=== PATIENT | female | born 1930 | race African-American/Black ===

== ENCOUNTER 2017-08-23 15:03 | Inpatient (IN) | payer OTHER, MEDICAID ==
[2017-08-23 20:27] LABS: BASOPHILS # (AUTO) 0.1 X10^3/uL (0.0-0.1); BASOPHILS % (AUTO) 0.8 % (0.2-1.0); EOSINOPHILS % (AUTO) 0.2 % (0.9-2.9); HEMATOCRIT 39.3 % (36.0-47.0); HEMOGLOBIN 12.9 g/dL (12.0-16.0); LYMPHOCYTES # (AUTO) 1.6 X10^3/uL (1.3-2.9); LYMPHOCYTES % (AUTO) 12.4 % (21.0-51.0); MEAN PLATELET VOLUME 8.1 fL (7.4-11.0); MONOCYTES # (AUTO) 1.1 x10^3/uL (0.3-0.8); MONOCYTES % (AUTO) 8.6 % (0.0-13.0); NEUTROPHILS # (AUTO) 9.8 x10^3/uL (2.2-4.8); PLATELET COUNT 361 X10^3/uL (150.0-450.0); RED BLOOD COUNT 4.62 X10^6/uL (3.5-5.4); RED CELL DISTRIBUTION WIDTH 15.4 % (11.6-16.5); WHITE BLOOD COUNT 12.6 X10^3/uL (3.6-10.0)
[2017-08-23 20:40] LABS: ALANINE AMINOTRANSFERASE 58 Units/L (12-78); ALBUMIN 2.2 g/dL (3.4-5.0); ALKALINE PHOSPHATASE 118 Units/L (46-116); ASPARTATE AMINO TRANSFERASE 49 Units/L (15-37); BLOOD UREA NITROGEN 27 mg/dL (7-18); CALCIUM 9.3 mg/dL (8.5-10.1); CARBON DIOXIDE 23.8 mmol/L (21-32); CHLORIDE 110 mmol/L (98-107); COR CA(FOR HYPOALB) 10.7 mg/dL (8.5-10.1); CREATININE 1.12 mg/dL (0.55-1.02); SODIUM 145 mmol/L (136-145); eGFR BLACK RACES 59 (>60); eGFR NON BLACK RACES 49 (>60)
[2017-08-23] MEDS ORDERED: MAXIPIME IV SCH (21:00)
[2017-08-23] MEDS: ZITHROMAX INJ 500 MG VIAL 500 MG in NS 250 ML IV 250 ML IV SCH (22:08)
[2017-08-23] MEDS: NS 1000 ML 1,000 ML IV SCH (22:08)
[2017-08-23] MEDS: MAXIPIME 1 GM IV PREMIX 1 GM/50 ML BAG IV SCH (22:09)
--- NOTE | 2017-08-23 22:32 | RAD ---
Chest, AP Indication: Bronchitis, cough, congestion Comparison: None Findings: There are mildly low lung volumes with minimal bibasilar airspace disease. The upper lungs are essentially clear. The cardiac silhouette is unremarkable. No evidence for large effusion. Impression: Low lung volumes with minimal bibasilar airspace disease, suggesting atelectasis. No conv incing bronchopneumonia. Reported By:
[2017-08-24 04:12] LABS: ABG BASE EXCESS 6.6 mmol/L (-2.0-2.0)
[2017-08-24 04:13] LABS: ABG HCO3 30.5 mmol/L (22-26)
[2017-08-24 04:16] LABS: FRACTIONATED INSPIRED OXYGEN 21
[2017-08-24 04:54] LABS: BASOPHILS # (AUTO) 0.1 X10^3/uL (0.0-0.1); BASOPHILS % (AUTO) 0.6 % (0.2-1.0); EOSINOPHILS % (AUTO) 0.4 % (0.9-2.9); HEMATOCRIT 35.7 % (36.0-47.0); HEMOGLOBIN 11.9 g/dL (12.0-16.0); LYMPHOCYTES # (AUTO) 2.3 X10^3/uL (1.3-2.9); LYMPHOCYTES % (AUTO) 21.4 % (21.0-51.0); MEAN CORPUSCULAR HEMOGLOBIN 28.3 pg (27.0-34.0); MEAN CORPUSCULAR HGB CONC 33.3 g/dL (33.0-35.0); MEAN CORPUSCULAR VOLUME 84.8 fL (80.0-100.0); MEAN PLATELET VOLUME 7.9 fL (7.4-11.0); MONOCYTES # (AUTO) 1.2 x10^3/uL (0.3-0.8); MONOCYTES % (AUTO) 11.5 % (0.0-13.0); NEUTROPHILS # (AUTO) 7.1 x10^3/uL (2.2-4.8); NEUTROPHILS % (AUTO) 66.1 % (42.0-75.0); PLATELET COUNT 374 X10^3/uL (150.0-450.0); RED CELL DISTRIBUTION WIDTH 15.1 % (11.6-16.5); WHITE BLOOD COUNT 10.8 X10^3/uL (3.6-10.0)
[2017-08-24 04:59] LABS: ALANINE AMINOTRANSFERASE 61 Units/L (12-78); ALBUMIN 2.1 g/dL (3.4-5.0); ALKALINE PHOSPHATASE 106 Units/L (46-116); ASPARTATE AMINO TRANSFERASE 66 Units/L (15-37); BLOOD UREA NITROGEN 26 mg/dL (7-18); CALCIUM 8.9 mg/dL (8.5-10.1); CARBON DIOXIDE 27.3 mmol/L (21-32); CHLORIDE 110 mmol/L (98-107); COR CA(FOR HYPOALB) 10.4 mg/dL (8.5-10.1); CREATININE 1.08 mg/dL (0.55-1.02); SODIUM 145 mmol/L (136-145); TOTAL PROTEIN 7.3 g/dL (6.4-8.2); eGFR BLACK RACES > 60 (>60); eGFR NON BLACK RACES 51 (>60)
--- NOTE | 2017-08-24 08:05 | DR.H&P ---
H&P - History & Physical for Day of: H&P Date: 08/23/17 - Chief Complaint Chief Complaint: CHEST CONGESTION, COLD - Allergies Allergies/Adverse Reactions: Allergies Allergy/AdvReac Type Severity Reaction Status Date / Time No Known Drug Allergies Allergy Verified 08/23/17 17:29 - History of Present Illness History of Present Illness: 86 BF ADMIT FROM [facility] WITH UPPER RESP ILLNESS. PT HAD DEMENTIA, HTN. PLAN TO OBTAIN ADMISSION, LABS, IV ATBX, RESP THERAPY - Past Medical History Past Medical History: Dementia, GERD - Past Surgical History Surgical History: Unknown - Social History Does patient currently use any type of tobacco product: No Have you used tobacco products in the last 12 months: No Type of Tobacco Use: None Does any household member use tobacco: No Alcohol Use: None Drug Use: None - Medications Home Medications: Acetaminophen [Tylenol 325 mg Tab] 650 mg PO Q6H PRN 08/23/17 [History Confirmed 08/23/17] Acetaminophen/Codeine Tab [TYLENOL w/CODEINE #3 (300 MG/30 MG) *] 1 tab PO Q8H PRN 08/23/17 [History Confirmed 08/23/17] Aluminum & Magnesium Hydroxide [MAALOX or MYLANTA SUSP *] 20 mg PO Q6H PRN 08/23 [History Confirmed 08/23/17] Calcium Polycarbophil [Fiber Laxative] 1 tab PO HS 08/23/17 [History Confirmed 08/23/17] Cranberry Fruit Extract [Cranberry] 1 cap PO AC 08/23/17 [History Confirmed 12/05] Divalproex Sodium [DEPAKOTE DR TAB 250 MG Generic *] 1 tab PO DAILY 08/23/17 [ History Confirmed 08/23/17] Docusate Sodium [COLACE CAP 100 MG *] 1 cap PO BID 08/23/17 [History Confirmed 08/23/17] Donepezil Hydrochloride [ARICEPT TAB 10 MG *] 1 tab PO HS 08/23/17 [History Confirmed 08/23/17] Donepezil Hydrochloride [ARICEPT TAB 5 MG *] 1 tab PO HS 08/23/17 [History Confirmed 08/23/17] Folic Acid 1 tab PO AC 08/23/17 [History Confirmed 08/23/17] Levofloxacin [LEVAQUIN TAB 500 MG *] 1 tab PO AC 08/23/17 [History Confirmed 12/05] Magnesium Hydroxide Susp [MILK of MAGNESIA SUSP *] 3 dose PO Q8H PRN 08/23/17 [ History Confirmed 08/23/17] Meloxicam [MOBIC 15 MG *] 1 tab PO AC 08/23/17 [History Confirmed 08/23/17] Memantine HCl [NAMENDA 10 MG *] 1 tab PO BID 08/23/17 [History Confirmed ] Omeprazole 1 tab PO AC 08/23/17 [History Confirmed 08/23/17] Thiamine HCl [B-1] 1 tab PO AC 08/23/17 [History Confirmed 08/23/17] - Review of Systems Constitutional: Fever, Chills Eyes: No Symptoms Reported ENT: No Symptoms Reported Respiratory: Cough, Sputum, Wheezing Gastrointestinal: No Symptoms Reported Genitourinary: No Symptoms Reported Musculoskeletal: No Symptoms Reported Skin: No Symptoms Reported Neurological: Confusion - Physical Exam Vital Signs: Temperature 98.7 F Pulse Rate [Left Brachial] 62 Respiratory Rate 20 Blood Pressure [Left Arm] 136/63 O2 Sat by Pulse Oximetry 98 Oriented: Normal Eyes: Normal Ear: Normal Nose: Normal Throat: Normal Respiratory: RLL Diminished, LLL Diminished Cardiovascular: Normal : Normal Auscultation: Bowel Sounds: Normal Palpation: Normal Tenderness: Normal Skin: Normal Musculoskeletal: Motor Deficit Psychiatric: Depression Mood Description: Calm Speech Pattern: Inappropriate - Assessment/Plan (1) Acute bronchitis Status: Acute Plan: RESUME HOME MEDS, BLOOD AND SPUTUM CULTURE. IV ATBX, SUPPLEMENTAL O2, JET NEBS (2) Dementia Status: Acute
[2017-08-24] MEDS: ZITHROMAX INJ 500 MG VIAL 500 MG in NS 250 ML IV 250 ML IV SCH (08:24)
[2017-08-24] MEDS: NS 1000 ML 1,000 ML IV SCH ×2 (08:25→22:03)
[2017-08-24] MEDS ORDERED: TYLENOL #3 TAB (W/CODEINE) PO PRN (13:00)
[2017-08-24 15:25] VITALS: BMI 27.3
[2017-08-24 15:26] LABS: BILIRUBIN,URINE NEGATIVE (NEGATIVE); BLOOD/HEMOGLOBIN,URINE 2+ (NEGATIVE); GLUCOSE, URINE NEGATIVE (NEGATIVE); KETONES,URINE 3+ (NEGATIVE); LEUKOCYTE ESTERASE ,URINE 1+ (NEGATIVE); NITRITES,URINE NEGATIVE (NEGATIVE); PROTEIN,URINE 2+ (NEGATIVE); UROBILINOGEN,URINE NORMAL (NORMAL)
[2017-08-24 15:33] LABS: APPEARANCE,URINE HAZY (CLEAR); BACTERIA,URINE TRACE /HPF (NEGATIVE); COLOR,URINE YELLOW (YELLOW); SQUAMOUS EPITHELIAL CELL,UR FEW /HPF (NEGATIVE)
[2017-08-24] MEDS: PriLOSEC PO SCH (17:44)
[2017-08-24] MEDS ORDERED: K-LYTE EFFERVESCENT PO PRN (18:40)
[2017-08-24] MEDS: FIBERCON PO SCH (21:37)
[2017-08-24] MEDS: COLACE CAP 100 MG PO SCH (21:37)
[2017-08-24] MEDS: NAMENDA TAB 10 MG PO SCH (21:37)
[2017-08-24] MEDS: MAXIPIME 1 GM IV PREMIX 1 GM/50 ML BAG IV SCH (21:37)
[2017-08-24] MEDS: ARICEPT TAB 5 MG PO SCH (21:37)
[2017-08-25 05:20] LABS: BASOPHILS # (AUTO) 0.1 X10^3/uL (0.0-0.1); BASOPHILS % (AUTO) 0.9 % (0.2-1.0); EOSINOPHILS # (AUTO) 0.1 x10^3/uL (0.0-0.2); EOSINOPHILS % (AUTO) 0.6 % (0.9-2.9); HEMATOCRIT 34.1 % (36.0-47.0); HEMOGLOBIN 11.4 g/dL (12.0-16.0); LYMPHOCYTES # (AUTO) 2.8 X10^3/uL (1.3-2.9); LYMPHOCYTES % (AUTO) 22.6 % (21.0-51.0); MEAN CORPUSCULAR HEMOGLOBIN 28.5 pg (27.0-34.0); MEAN CORPUSCULAR HGB CONC 33.5 g/dL (33.0-35.0); MEAN CORPUSCULAR VOLUME 85.2 fL (80.0-100.0); MEAN PLATELET VOLUME 8.3 fL (7.4-11.0); MONOCYTES # (AUTO) 1.6 x10^3/uL (0.3-0.8); MONOCYTES % (AUTO) 12.7 % (0.0-13.0); NEUTROPHILS # (AUTO) 7.9 x10^3/uL (2.2-4.8); NEUTROPHILS % (AUTO) 63.2 % (42.0-75.0); PLATELET COUNT 335 X10^3/uL (150.0-450.0); RED BLOOD COUNT 4.01 X10^6/uL (3.5-5.4); RED CELL DISTRIBUTION WIDTH 15.4 % (11.6-16.5); WHITE BLOOD COUNT 12.5 X10^3/uL (3.6-10.0)
[2017-08-25] MEDS: PriLOSEC PO SCH ×3 (05:34→17:30)
[2017-08-25 05:38] LABS: ALANINE AMINOTRANSFERASE 113 Units/L (12-78); ALBUMIN 2.1 g/dL (3.4-5.0); ALKALINE PHOSPHATASE 101 Units/L (46-116); ASPARTATE AMINO TRANSFERASE 130 Units/L (15-37); BLOOD UREA NITROGEN 22 mg/dL (7-18); CALCIUM 8.8 mg/dL (8.5-10.1); CARBON DIOXIDE 24.9 mmol/L (21-32); CHLORIDE 114 mmol/L (98-107); COR CA(FOR HYPOALB) 10.3 mg/dL (8.5-10.1); CREATININE 1.07 mg/dL (0.55-1.02); TOTAL PROTEIN 6.9 g/dL (6.4-8.2); eGFR BLACK RACES > 60 (>60); eGFR NON BLACK RACES 52 (>60)
[2017-08-25 05:45] LABS: SODIUM 150 mmol/L (136-145)
--- NOTE | 2017-08-25 07:15 | RAD ---
Examination: Portable AP chest History: SOB Comparison 08/23/2017 Findings: Continued normal heart size. Suspect mild bibasal atelectasis, accentuated by low lung volu mes. No consolidation, pulmonary edema or large pleural effusion. Impression: No definite change since 08/23/2017. Reported By:
[2017-08-25] MEDS: NAMENDA TAB 10 MG PO SCH ×2 (10:18→21:10)
[2017-08-25] MEDS: NS 1000 ML 1,000 ML IV SCH (10:18)
[2017-08-25] MEDS: COLACE CAP 100 MG PO SCH ×2 (10:18→21:10)
[2017-08-25] MEDS: ZITHROMAX INJ 500 MG VIAL 500 MG in NS 250 ML IV 250 ML IV SCH (10:18)
[2017-08-25] MEDS: DEPAKOTE D.R. TAB PO SCH (10:18)
--- NOTE | 2017-08-25 17:00 | PCM.PROG ---
Progress Note - Progress Note for Day of Date: 08/25/17 - Subjective Subjective: WAS ADMITTED FOR ALTERED MENTAL STATUS AND AN UPPER RESPIRATORY INFECTION. TODAY, SHE IS LYING IN BED ON MORNING ROUNDS. SHE CONTINUES WITH COMPLAINTS OF SHORTNESS OF BREATH AND A PERSISTENT COUGH. ON EXAMINATION, HEART IS REGULAR IN RATE AND RHYTHM. BILATERAL LUNGS ARE NOTED WITH SCATTERED WHEEZING. ABODOMEN IS ROUND, SOFT, AND NON-TENDER WITH NORMAL BOWEL SOUNDS NOTED TO ALL QUADRANTS. THERE IS NORMAL RANGE OF MOTION NOTED TO ALL EXTREMITIES. HER VITAL SIGNS THIS MORNING ARE 99.4-58-18-97%-167/73. HER WHITE BLOOD CELL COUNT THIS MORNING IS 12.5 AND HER SODIUM IS 150. OTHERWISE, SHE IS HEMODYNAMICALLY STABLE. STAFF REPORTS THAT PATIENT CONTINUES WITH CONFUSTION AT TIMES. A CHEST XRAY WAS OBTAINED THIS MORNING AND REPORTS SUSPECT MILD BIBASAL ATELECTASIS. TODAY, WE WILL CHANGE IV FLUIDS TO NORMAL SALINE AT 50ML/HR. OTHERWISE, WE WILL CONTINUE WITH IV ANTIBIOTICS. WE PLAN TO FOLLOW UP WITH AM LABS AND CONTINUE TO MONITOR PATIENT. - Past Medical Family Social History Past Med/Fam/Surg Hx: No changes since H&P Allergies: Allergies No Known Drug Allergies Allergy (Verified 08/23/17 17:29) - Review of Systems ROS: No change since H&P - Vital Signs and I&O's Vital Signs: Temperature 99.0 F Pulse Rate [Left Brachial] 60 Respiratory Rate 18 Blood Pressure [Right Arm] 133/61 Blood Pressure [Left Arm] 170/75 O2 Sat by Pulse Oximetry 98 Intake and Output: Intake & Output 08/23/17 08/24/17 08/25/17 08/26/17 11:59 11:59 11:59 11:59 Intake Total 790 1590 640 Balance 790 1590 640 - Physical Exam Oriented: Normal Eyes: Normal Ear: Normal Nose: Normal Throat: Normal Respiratory: Right, Left, Generalized, Wheezes Cardiovascular: Normal : Normal Auscultation: Bowel Sounds: Normal Palpation: Normal Tenderness: Normal Skin: Normal Musculoskeletal: Motor Deficit Psychiatric: Depression Mood Description: Calm Speech Pattern: Clear, Appropriate - Laboratory and Diagnostics Result Diagrams: 08/25/17 04:10 08/25/17 04:10 Labs: 08/23/17 19:52 Blood Blood Culture - Preliminary 08/23/17 19:47 Blood Blood Culture - Preliminary 08/24/17 15:09 Urine,Clean Catch Urine Culture - Preliminary Laboratory WBC 12.5 X10^3/uL (3.6-10.0) H 08/25/17 04:10 RBC 4.01 X10^6/uL (3.5-5.4) 08/25/17 04:10 Hgb 11.4 g/dL (12.0-16.0) L 08/25/17 04:10 Hct 34.1 % (36.0-47.0) L 08/25/17 04:10 MCV 85.2 fL (80.0-100.0) 08/25/17 04:10 MCH 28.5 pg (27.0-34.0) 08/25/17 04:10 MCHC 33.5 g/dL (33.0-35.0) 08/25/17 04:10 RDW 15.4 % (11.6-16.5) 08/25/17 04:10 Plt Count 335 X10^3/uL (150.0-450.0) 08/25/17 04:10 MPV 8.3 fL (7.4-11.0) 08/25/17 04:10 Neut % 63.2 % (42.0-75.0) 08/25/17 04:10 Lymph % 22.6 % (21.0-51.0) 08/25/17 04:10 [place] % 12.7 % (0.0-13.0) 08/25/17 04:10 Eos % 0.6 % (0.9-2.9) L 08/25/17 04:10 Baso % 0.9 % (0.2-1.0) 08/25/17 04:10 Neut # 7.9 x10^3/uL (2.2-4.8) H 08/25/17 04:10 Lymph # 2.8 X10^3/uL (1.3-2.9) 08/25/17 04:10 [place] # 1.6 x10^3/uL (0.3-0.8) H 08/25/17 04:10 Eos # 0.1 x10^3/uL (0.0-0.2) 08/25/17 04:10 Baso # 0.1 X10^3/uL (0.0-0.1) 08/25/17 04:10 Absolute Nucleated RBC 0.0 /100WBC 08/25/17 04:10 Sample Site Lbra 08/23/17 21:52 ABG pH 7.490 (7.35-7.45) H 08/23/17 21:52 ABG pCO2 40.0 mmHg (35.0-45.0) 08/23/17 21:52 ABG pO2 74.0 mmHg (80.0-100.0) L 08/23/17 21:52 ABG HCO3 30.5 mmol/L (22-26) H* 08/23/17 21:52 ABG O2 Saturation 96.0 % (90-100) 08/23/17 21:52 ABG Base Excess 6.6 mmol/L (-2.0-2.0) H 08/23/17 21:52 Danny Test Na 08/23/17 21:52 A-a Gradient Not Reportable 08/23/17 21:52 FiO2 21 08/23/17 21:52 Blood Gas Comments Denis abg well-mtf 08/23/17 21:52 Sodium 150 mmol/L (136-145) H* 08/25/17 04:10 Corrected Sodium TNP 08/25/17 04:10 Potassium 3.5 mmol/L (3.5-5.1) 08/25/17 04:10 Chloride 114 mmol/L (98-107) H 08/25/17 04:10 Carbon Dioxide 24.9 mmol/L (21-32) 08/25/17 04:10 BUN 22 mg/dL (7-18) H 08/25/17 04:10 Creatinine 1.07 mg/dL (0.55-1.02) H 08/25/17 04:10 Est GFR (MDRD) Af Amer > 60 (>60) 08/25/17 04:10 Est GFR (MDRD) Non-Af 52 (>60) L 08/25/17 04:10 Glucose 91 mg/dL (65-99) 08/25/17 04:10 Calcium 8.8 mg/dL (8.5-10.1) 08/25/17 04:10 Corrected Calcium 10.3 mg/dL (8.5-10.1) H 08/25/17 04:10 Total Bilirubin 0.40 mg/dL (0.2-1.0) 08/25/17 04:10 AST 130 Units/L (15-37) H 08/25/17 04:10 ALT 113 Units/L (12-78) H 08/25/17 04:10 Alkaline Phosphatase 101 Units/L (46-116) 08/25/17 04:10 Total Protein 6.9 g/dL (6.4-8.2) 08/25/17 04:10 Albumin 2.1 g/dL (3.4-5.0) L 08/25/17 04:10 Globulin 4.8 g/dL (2.5-4.5) H 08/25/17 04:10 Albumin/Globulin Ratio 0.4 Ratio (1.1-2.1) L 08/25/17 04:10 Specimen Type Clean catch urine 08/24/17 15:09 Urine Color Yellow (YELLOW) 08/24/17 15:09 Urine Appearance Hazy (CLEAR) 08/24/17 15:09 Urine pH 6.0 (5.0 - 8.0) 08/24/17 15:09 Ur Specific [place] 1.025 (1.000-1.030) 08/24/17 15:09 Urine Protein 2+ (NEGATIVE) 08/24/17 15:09 Urine Glucose (UA) Negative (NEGATIVE) 08/24/17 15:09 Urine Ketones 3+ (NEGATIVE) 08/24/17 15:09 Urine Occult Blood 2+ (NEGATIVE) 08/24/17 15:09 Urine Nitrite Negative (NEGATIVE) 08/24/17 15:09 Urine Bilirubin Negative (NEGATIVE) 08/24/17 15:09 Urine Urobilinogen Normal (NORMAL) 08/24/17 15:09 Ur Leukocyte Esterase 1+ (NEGATIVE) 08/24/17 15:09 Urine RBC 3-5 /HPF (NEGATIVE) 08/24/17 15:09 Urine WBC 3-5 /HPF (NEGATIVE) 08/24/17 15:09 Ur Squamous Epith Cells Few /HPF (NEGATIVE) 08/24/17 15:09 Urine Bacteria Trace /HPF (NEGATIVE) 08/24/17 15:09 Ur Culture Indicated? Yes/culture set up 08/24/17 15:09 Stl C. diff Tox B Gene Negative (NEGATIVE) 08/23/17 19:07 Stl C. diff 027-NAP1-BI Negative (NEGATIVE) 08/23/17 19:07 Influenza Type A (PCR) Negative (NEGATIVE) 08/23/17 20:39 Influenza Type B (PCR) Negative (NEGATIVE) 08/23/17 20:39 - Plan (1) Acute bronchitis Status: Acute Plan: CONTINUE IV ANTIBIOTICS, START NEB TX, CONTINUE TO MONITOR LABS AND CHEST XRAY (2) Dementia Status: Acute Qualifiers: Dementia type: vascular dementia Dementia behavioral disturbance: without behavioral disturbance Qualified Code(s): F01.50 - Vascular dementia without behavioral disturbance Plan: CONTINUE NAMENDA, CONTINUE ARICEPT, CONTINUE TO MONITOR
[2017-08-25] MEDS ORDERED: NS 1/2 1000 ML IV 1,000 ML IV ONE (17:19)
[2017-08-25] MEDS: NS 1/2 1000 ML IV 1,000 ML IV SCH (17:30)
[2017-08-25] MEDS: MAXIPIME 1 GM IV PREMIX 1 GM/50 ML BAG IV SCH (21:03)
[2017-08-25] MEDS: ARICEPT TAB 5 MG PO SCH (21:10)
[2017-08-25] MEDS: FIBERCON PO SCH (21:10)
[2017-08-26] MEDS: NS 1/2 1000 ML IV 1,000 ML IV SCH ×2 (05:46→21:24)
[2017-08-26] MEDS: PriLOSEC PO SCH ×3 (05:46→16:20)
[2017-08-26 06:43] LABS: BASOPHILS # (AUTO) 0.1 X10^3/uL (0.0-0.1); EOSINOPHILS # (AUTO) 0.1 x10^3/uL (0.0-0.2); EOSINOPHILS % (AUTO) 0.9 % (0.9-2.9); HEMATOCRIT 34.6 % (36.0-47.0); HEMOGLOBIN 11.5 g/dL (12.0-16.0); LYMPHOCYTES # (AUTO) 2.9 X10^3/uL (1.3-2.9); LYMPHOCYTES % (AUTO) 25.5 % (21.0-51.0); MEAN CORPUSCULAR HEMOGLOBIN 28.2 pg (27.0-34.0); MEAN CORPUSCULAR HGB CONC 33.3 g/dL (33.0-35.0); MEAN CORPUSCULAR VOLUME 84.7 fL (80.0-100.0); MEAN PLATELET VOLUME 8.3 fL (7.4-11.0); MONOCYTES # (AUTO) 1.2 x10^3/uL (0.3-0.8); MONOCYTES % (AUTO) 10.3 % (0.0-13.0); NEUTROPHILS % (AUTO) 62.3 % (42.0-75.0); PLATELET COUNT 328 X10^3/uL (150.0-450.0); RED BLOOD COUNT 4.08 X10^6/uL (3.5-5.4); RED CELL DISTRIBUTION WIDTH 15.1 % (11.6-16.5); WHITE BLOOD COUNT 11.2 X10^3/uL (3.6-10.0)
[2017-08-26 06:56] LABS: ALANINE AMINOTRANSFERASE 101 Units/L (12-78); ALKALINE PHOSPHATASE 96 Units/L (46-116); ASPARTATE AMINO TRANSFERASE 82 Units/L (15-37); BLOOD UREA NITROGEN 18 mg/dL (7-18); CALCIUM 8.5 mg/dL (8.5-10.1); CARBON DIOXIDE 24.5 mmol/L (21-32); CHLORIDE 113 mmol/L (98-107); COR CA(FOR HYPOALB) 10.1 mg/dL (8.5-10.1); CREATININE 0.92 mg/dL (0.55-1.02); SODIUM 149 mmol/L (136-145); TOTAL PROTEIN 6.8 g/dL (6.4-8.2); eGFR BLACK RACES > 60 (>60); eGFR NON BLACK RACES > 60 (>60)
[2017-08-26] MEDS ORDERED: POTASSIUM CHL 40 MEQ/NS 0.45% 500 ML IV PRN (08:05)
--- NOTE | 2017-08-26 08:08 | RAD ---
Are Examination: Portable AP chest History: SOB Comparison reference 08/25/2017 Findings: Continued normal heart size. Minimal bibasal atelectasis, accentuated by portable technique and pulmonary underinflation. There is no evidence for pneumonia, large pleural effusion or pneumoth orax. Impression: No change since 1 day earlier. Reported By:
[2017-08-26] MEDS: COLACE CAP 100 MG PO SCH ×2 (10:52→21:23)
[2017-08-26] MEDS: NAMENDA TAB 10 MG PO SCH ×2 (10:52→21:23)
[2017-08-26] MEDS: NORVASC TAB 5 MG PO SCH (10:52)
[2017-08-26] MEDS: DEPAKOTE D.R. TAB PO SCH (10:52)
[2017-08-26] MEDS: ZITHROMAX INJ 500 MG VIAL 500 MG in NS 250 ML IV 250 ML IV SCH (10:52)
[2017-08-26] MEDS: ALBUMIN HUMAN 25%- 100ML 100 ML IV SCH (12:04)
[2017-08-26] MEDS ORDERED: NS 1/2 1000 ML IV 1,000 ML IV ONE (12:10)
[2017-08-26] MEDS: ARICEPT TAB 5 MG PO SCH (21:23)
[2017-08-26] MEDS: FIBERCON PO SCH (21:23)
[2017-08-26] MEDS: MAXIPIME 1 GM IV PREMIX 1 GM/50 ML BAG IV SCH (21:23)
[2017-08-27 05:37] LABS: BASOPHILS # (AUTO) 0.1 X10^3/uL (0.0-0.1); BASOPHILS % (AUTO) 0.9 % (0.2-1.0); EOSINOPHILS # (AUTO) 0.1 x10^3/uL (0.0-0.2); HEMATOCRIT 33.1 % (36.0-47.0); HEMOGLOBIN 11.1 g/dL (12.0-16.0); LYMPHOCYTES # (AUTO) 2.9 X10^3/uL (1.3-2.9); LYMPHOCYTES % (AUTO) 27.5 % (21.0-51.0); MEAN CORPUSCULAR HGB CONC 33.6 g/dL (33.0-35.0); MEAN CORPUSCULAR VOLUME 83.4 fL (80.0-100.0); MONOCYTES # (AUTO) 1.1 x10^3/uL (0.3-0.8); MONOCYTES % (AUTO) 10.2 % (0.0-13.0); NEUTROPHILS # (AUTO) 6.4 x10^3/uL (2.2-4.8); NEUTROPHILS % (AUTO) 60.4 % (42.0-75.0); PLATELET COUNT 326 X10^3/uL (150.0-450.0); RED BLOOD COUNT 3.97 X10^6/uL (3.5-5.4); RED CELL DISTRIBUTION WIDTH 14.9 % (11.6-16.5); WHITE BLOOD COUNT 10.7 X10^3/uL (3.6-10.0)
[2017-08-27 05:53] LABS: ALANINE AMINOTRANSFERASE 66 Units/L (12-78); ALBUMIN 2.4 g/dL (3.4-5.0); ALKALINE PHOSPHATASE 77 Units/L (46-116); ASPARTATE AMINO TRANSFERASE 38 Units/L (15-37); BLOOD UREA NITROGEN 13 mg/dL (7-18); CALCIUM 8.4 mg/dL (8.5-10.1); CARBON DIOXIDE 23.5 mmol/L (21-32); CHLORIDE 112 mmol/L (98-107); COR CA(FOR HYPOALB) 9.7 mg/dL (8.5-10.1); CREATININE 0.91 mg/dL (0.55-1.02); SODIUM 146 mmol/L (136-145); TOTAL PROTEIN 6.5 g/dL (6.4-8.2); eGFR BLACK RACES > 60 (>60); eGFR NON BLACK RACES > 60 (>60)
[2017-08-27] MEDS: PriLOSEC PO SCH (06:28)
[2017-08-27] MEDS: DEPAKOTE D.R. TAB PO SCH (09:58)
[2017-08-27] MEDS: NAMENDA TAB 10 MG PO SCH (09:58)
[2017-08-27] MEDS: COLACE CAP 100 MG PO SCH (09:58)
[2017-08-27] MEDS: NORVASC TAB 5 MG PO SCH (09:58)
[2017-08-27] MEDS: ALBUMIN HUMAN 25%- 100ML 100 ML IV SCH (10:00)
[2017-08-27] MEDS: ZITHROMAX INJ 500 MG VIAL 500 MG in NS 250 ML IV 250 ML IV SCH (10:01)
--- NOTE | 2017-08-27 12:55 | PCM.PROG ---
Progress Note - Progress Note for Day of Date: 08/26/17 - Subjective Subjective: WAS ADMITTED ON 08/23/2017 FOR ALTERED MENTAL STATUS AND AN UPPER RESPIRATORY INFECTION. TODAY, SHE IS LYING IN BED ON MORNING ROUNDS. SHE CONTINUES WITH COMPLAINTS OF SHORTNESS OF BREATH AND A PERSISTENT COUGH. ON EXAMINATION, HEART IS REGULAR IN RATE AND RHYTHM. BILATERAL LUNGS CONTINUE WITH SCATTERED WHEEZING. ABODOMEN IS ROUND, SOFT, AND NON-TENDER WITH NORMAL BOWEL SOUNDS NOTED TO ALL QUADRANTS. THERE IS NORMAL RANGE OF MOTION NOTED TO ALL EXTREMITIES. HER VITAL SIGNS THIS MORNING ARE 98.4-58-20-98%-167/70. HER WHITE BLOOD CELL COUNT THIS MORNING HAS DECREASED TO 11.2 AND HER SODIUM CONTINUES TO BE ELEVATED AT 149. ALBUMIN LOW AT 2.0. OTHERWISE, SHE IS HEMODYNAMICALLY STABLE. STAFF REPORTS THAT PATIENT CONTINUES WITH CONFUSTION AT TIMES. A CHEST XRAY WAS OBTAINED THIS MORNING AND REPORTS MINIMAL BIBASAL ATELECTASIS. TODAY, WE WILL START AMLODIPINE 5MG PO DAILY FOR INCREASED BLOOD PRESSURE. WE WILL ALSO START ALBUMIN 25% IV DAILY FOR DECREASED ALBUMIN LEVELS. OTHERWISE, WE WILL CONTINUE WITH CURRENT PLAN OF CARE. WE WILL FOLLOW UP WITH AM LABS AND CONTINUE TO MONITOR PATIENT. - Past Medical Family Social History Past Med/Fam/Surg Hx: No changes since H&P Allergies: Allergies No Known Drug Allergies Allergy (Verified 08/23/17 17:29) - Review of Systems ROS: No change since H&P - Vital Signs and I&O's Vital Signs: Temperature 98.7 F Pulse Rate [Right Brachial] 61 Pulse Rate [Left Brachial] 59 Respiratory Rate 20 Blood Pressure [Right Arm] 189/79 Blood Pressure [Left Arm] 153/70 O2 Sat by Pulse Oximetry 93 Intake and Output: Intake & Output 08/25/17 08/26/17 08/27/17 08/28/17 11:59 11:59 11:59 11:59 Intake Total 1590 1265 953 Balance 1590 1265 953 - Physical Exam Oriented: Normal Eyes: Normal Ear: Normal Nose: Normal Throat: Normal Respiratory: Right, Left, Generalized, Wheezes Cardiovascular: Normal : Normal Auscultation: Bowel Sounds: Normal Palpation: Normal Tenderness: Normal Skin: Normal Musculoskeletal: Motor Deficit Psychiatric: Depression Mood Description: Calm Speech Pattern: Clear, Appropriate - Laboratory and Diagnostics Result Diagrams: 08/27/17 04:25 08/27/17 04:25 Labs: 08/24/17 15:09 Urine,Clean Catch Urine Culture - Final 08/23/17 19:52 Blood Blood Culture - Preliminary 08/23/17 19:47 Blood Blood Culture - Preliminary Laboratory WBC 10.7 X10^3/uL (3.6-10.0) H 08/27/17 04:25 RBC 3.97 X10^6/uL (3.5-5.4) 08/27/17 04:25 Hgb 11.1 g/dL (12.0-16.0) L 08/27/17 04:25 Hct 33.1 % (36.0-47.0) L 08/27/17 04:25 MCV 83.4 fL (80.0-100.0) 08/27/17 04:25 MCH 28.0 pg (27.0-34.0) 08/27/17 04:25 MCHC 33.6 g/dL (33.0-35.0) 08/27/17 04:25 RDW 14.9 % (11.6-16.5) 08/27/17 04:25 Plt Count 326 X10^3/uL (150.0-450.0) 08/27/17 04:25 MPV 8.0 fL (7.4-11.0) 08/27/17 04:25 Neut % 60.4 % (42.0-75.0) 08/27/17 04:25 Lymph % 27.5 % (21.0-51.0) 08/27/17 04:25 [place] % 10.2 % (0.0-13.0) 08/27/17 04:25 Eos % 1.0 % (0.9-2.9) 08/27/17 04:25 Baso % 0.9 % (0.2-1.0) 08/27/17 04:25 Neut # 6.4 x10^3/uL (2.2-4.8) H 08/27/17 04:25 Lymph # 2.9 X10^3/uL (1.3-2.9) 08/27/17 04:25 [place] # 1.1 x10^3/uL (0.3-0.8) H 08/27/17 04:25 Eos # 0.1 x10^3/uL (0.0-0.2) 08/27/17 04:25 Baso # 0.1 X10^3/uL (0.0-0.1) 08/27/17 04:25 Absolute Nucleated RBC 0.1 /100WBC 08/27/17 04:25 Sample Site Lbra 08/23/17 21:52 ABG pH 7.490 (7.35-7.45) H 08/23/17 21:52 ABG pCO2 40.0 mmHg (35.0-45.0) 08/23/17 21:52 ABG pO2 74.0 mmHg (80.0-100.0) L 08/23/17 21:52 ABG HCO3 30.5 mmol/L (22-26) H* 08/23/17 21:52 ABG O2 Saturation 96.0 % (90-100) 08/23/17 21:52 ABG Base Excess 6.6 mmol/L (-2.0-2.0) H 08/23/17 21:52 Danny Test Na 08/23/17 21:52 A-a Gradient Not Reportable 08/23/17 21:52 FiO2 21 08/23/17 21:52 Blood Gas Comments Denis abg well-mtf 08/23/17 21:52 Sodium 146 mmol/L (136-145) H 08/27/17 04:25 Corrected Sodium TNP 08/27/17 04:25 Potassium 3.4 mmol/L (3.5-5.1) L 08/27/17 04:25 Chloride 112 mmol/L (98-107) H 08/27/17 04:25 Carbon Dioxide 23.5 mmol/L (21-32) 08/27/17 04:25 BUN 13 mg/dL (7-18) 08/27/17 04:25 Creatinine 0.91 mg/dL (0.55-1.02) 08/27/17 04:25 Est GFR (MDRD) Af Amer > 60 (>60) 08/27/17 04:25 Est GFR (MDRD) Non-Af > 60 (>60) 08/27/17 04:25 Glucose 78 mg/dL (65-99) 08/27/17 04:25 Calcium 8.4 mg/dL (8.5-10.1) L 08/27/17 04:25 Corrected Calcium 9.7 mg/dL (8.5-10.1) 08/27/17 04:25 Magnesium 2.0 mg/dL (1.7-2.9) 08/26/17 05:15 Total Bilirubin 0.50 mg/dL (0.2-1.0) 08/27/17 04:25 AST 38 Units/L (15-37) H 08/27/17 04:25 ALT 66 Units/L (12-78) 08/27/17 04:25 Alkaline Phosphatase 77 Units/L (46-116) 08/27/17 04:25 Total Protein 6.5 g/dL (6.4-8.2) 08/27/17 04:25 Albumin 2.4 g/dL (3.4-5.0) L 08/27/17 04:25 Globulin 4.1 g/dL (2.5-4.5) 08/27/17 04:25 Albumin/Globulin Ratio 0.6 Ratio (1.1-2.1) L 08/27/17 04:25 Specimen Type Clean catch urine 08/24/17 15:09 Urine Color Yellow (YELLOW) 08/24/17 15:09 Urine Appearance Hazy (CLEAR) 08/24/17 15:09 Urine pH 6.0 (5.0 - 8.0) 08/24/17 15:09 Ur Specific [place] 1.025 (1.000-1.030) 08/24/17 15:09 Urine Protein 2+ (NEGATIVE) 08/24/17 15:09 Urine Glucose (UA) Negative (NEGATIVE) 08/24/17 15:09 Urine Ketones 3+ (NEGATIVE) 08/24/17 15:09 Urine Occult Blood 2+ (NEGATIVE) 08/24/17 15:09 Urine Nitrite Negative (NEGATIVE) 08/24/17 15:09 Urine Bilirubin Negative (NEGATIVE) 08/24/17 15:09 Urine Urobilinogen Normal (NORMAL) 08/24/17 15:09 Ur Leukocyte Esterase 1+ (NEGATIVE) 08/24/17 15:09 Urine RBC 3-5 /HPF (NEGATIVE) 08/24/17 15:09 Urine WBC 3-5 /HPF (NEGATIVE) 08/24/17 15:09 Ur Squamous Epith Cells Few /HPF (NEGATIVE) 08/24/17 15:09 Urine Bacteria Trace /HPF (NEGATIVE) 08/24/17 15:09 Ur Culture Indicated? Yes/culture set up 08/24/17 15:09 Stl C. diff Tox B Gene Negative (NEGATIVE) 08/23/17 19:07 Stl C. diff [id number] Negative (NEGATIVE) 08/23/17 19:07 Influenza Type A (PCR) Negative (NEGATIVE) 08/23/17 20:39 Influenza Type B (PCR) Negative (NEGATIVE) 08/23/17 20:39 - Plan (1) Acute bronchitis Status: Acute Qualifiers: Bronchitis organism: unspecified organism Qualified Code(s): J20.9 - Acute bronchitis, unspecified Plan: CONTINUE IV ANTIBIOTICS, START NEB TX, CONTINUE TO MONITOR LABS AND CHEST XRAY (2) Dementia Status: Acute Qualifiers: Dementia type: vascular dementia Dementia behavioral disturbance: without behavioral disturbance Qualified Code(s): F01.50 - Vascular dementia without behavioral disturbance Plan: CONTINUE NAMENDA, CONTINUE ARICEPT, CONTINUE TO MONITOR (3) Hypertension Status: Acute Qualifiers: Hypertension type: essential hypertension Qualified Code(s): I10 - Essential (primary) hypertension Plan: AMLODIPINE 5MG PO DAILY, CONTINUE TO MONITOR (4) Hypoalbuminemia Status: Acute Plan: ALBUMIN 25% IV DAILY, CONTINUE TO MONITOR
[2017-08-27 16:24] VITALS: BP 181/78
== END 2017-08-27 15:50 | DRG 884 ==
LOC: MED/SURG 15:03 → UNDOADMIN 15:03 → MED/SURG 16:52
PROVIDERS: ADMIT Internal Medicine; ATTEND Internal Medicine
DX: R40.4 Transient alteration of awareness (principal); J20.8 Acute bronchitis due to other specified organisms; J06.9 Acute upper respiratory infection, unspecified; F01.50 Vascular dementia, unspecified severity, without behavioral disturbance, psychotic disturbance, mood disturbance, and anxiety; R06.02 Shortness of breath; I10 Essential (primary) hypertension; E88.09 Other disorders of plasma-protein metabolism, not elsewhere classified
CPT/HCPCS: 36415; 36600; 71045; 80053; 81001; 82803; 83735; 85025; 87040; 87086; 87493; 87502; 94640; 94760; A4216; A4222; P9047; J0456; J0692

== ENCOUNTER 2017-12-04 16:03 | Observation (INO) | payer OTHER, MEDICAID ==
[2017-12-04 19:20] LABS: BASOPHILS # (AUTO) 0.1 X10^3/uL (0.0-0.1); BASOPHILS % (AUTO) 0.8 % (0.2-1.0); EOSINOPHILS # (AUTO) 0.2 x10^3/uL (0.0-0.2); EOSINOPHILS % (AUTO) 2.2 % (0.9-2.9); HEMATOCRIT 40.2 % (36.0-47.0); HEMOGLOBIN 13.4 g/dL (12.0-16.0); LYMPHOCYTES # (AUTO) 4.1 X10^3/uL (1.3-2.9); LYMPHOCYTES % (AUTO) 49.1 % (21.0-51.0); MEAN CORPUSCULAR HEMOGLOBIN 27.6 pg (27.0-34.0); MEAN CORPUSCULAR HGB CONC 33.4 g/dL (33.0-35.0); MEAN CORPUSCULAR VOLUME 82.6 fL (80.0-100.0); MEAN PLATELET VOLUME 8.7 fL (7.4-11.0); MONOCYTES # (AUTO) 0.3 x10^3/uL (0.3-0.8); MONOCYTES % (AUTO) 3.6 % (0.0-13.0); NEUTROPHILS # (AUTO) 3.7 x10^3/uL (2.2-4.8); NEUTROPHILS % (AUTO) 44.3 % (42.0-75.0); PLATELET COUNT 396 X10^3/uL (150.0-450.0); RED BLOOD COUNT 4.87 X10^6/uL (3.5-5.4); RED CELL DISTRIBUTION WIDTH 17.2 % (11.6-16.5); WHITE BLOOD COUNT 8.4 X10^3/uL (3.6-10.0)
[2017-12-04 19:37] LABS: ALANINE AMINOTRANSFERASE 39 Units/L (12-78); ALBUMIN 2.4 g/dL (3.4-5.0); ALKALINE PHOSPHATASE 82 Units/L (46-116); AMYLASE 84 Units/L (25-115); ASPARTATE AMINO TRANSFERASE 23 Units/L (15-37); BLOOD UREA NITROGEN 4 mg/dL (7-18); CALCIUM 8.9 mg/dL (8.5-10.1); CARBON DIOXIDE 20.1 mmol/L (21-32); CHLORIDE 110 mmol/L (98-107); COR CA(FOR HYPOALB) 10.2 mg/dL (8.5-10.1); FREE T4 (FREE THYROXINE) 1.72 ng/dL (0.76-1.46); LIPASE 226 Units/L (73-393); SODIUM 142 mmol/L (136-145); TOTAL PROTEIN 8.3 g/dL (6.4-8.2); TSH (3RD GENERATION) 2.478 uIU/mL (0.358-3.74); eGFR BLACK RACES > 60 (>60); eGFR NON BLACK RACES > 60 (>60)
[2017-12-04 19:40] VITALS: BMI 21.0
[2017-12-04] MEDS ORDERED: POTASSIUM CHL 60 MEQ/NS 0.45% 500 ML IV PRN (19:46)
[2017-12-04] MEDS ORDERED: MAGNESIUM SULFATE 1 GM/100 mL PREMIX 1 GM/100 ML BAG IV PRN (19:46)
[2017-12-04] MEDS ORDERED: POTASSIUM CHLORIDE LIQ 20 MEQ UDC PO PRN (19:46)
[2017-12-04] MEDS ORDERED: POTASSIUM CHL 40 MEQ/NS 0.45% 500 ML IV PRN (19:46)
[2017-12-04] MEDS ORDERED: K-RIDER 10 MEQ/NS 100 ML 10 MEQ/100 ML BAG IV PRN (19:46)
[2017-12-04] MEDS: NS 1000 ML 1,000 ML IV SCH (19:48)
[2017-12-04] MEDS: ZOSYN VIAL 4.5 GM 4.5 GM in NS 100 ML IV + SPIKE MINIBAG* 100 ML IV SCH ×2 (19:48→23:44)
[2017-12-04] MEDS: K-LYTE EFFERVESCENT PO PRN (22:30)
--- NOTE | 2017-12-04 22:51 | RAD ---
Chest AP portable Indication: Weakness and altered mental status Comparison: 08/26/2017 Findings: There is no pneumothorax, effusion or consolidation. Mild hyperinflation is noted. Heart si ze is prominent. Impression: No acute chest process or change from the prior. Reported By:
[2017-12-05 05:21] LABS: BASOPHILS % (AUTO) 0.2 % (0.2-1.0); EOSINOPHILS # (AUTO) 0.2 x10^3/uL (0.0-0.2); EOSINOPHILS % (AUTO) 2.7 % (0.9-2.9); HEMATOCRIT 32.1 % (36.0-47.0); HEMOGLOBIN 10.6 g/dL (12.0-16.0); LYMPHOCYTES # (AUTO) 3.8 X10^3/uL (1.3-2.9); LYMPHOCYTES % (AUTO) 44.4 % (21.0-51.0); MEAN CORPUSCULAR HEMOGLOBIN 27.4 pg (27.0-34.0); MEAN CORPUSCULAR HGB CONC 33.1 g/dL (33.0-35.0); MEAN CORPUSCULAR VOLUME 82.8 fL (80.0-100.0); MEAN PLATELET VOLUME 8.9 fL (7.4-11.0); MONOCYTES # (AUTO) 0.6 x10^3/uL (0.3-0.8); MONOCYTES % (AUTO) 7.4 % (0.0-13.0); NEUTROPHILS # (AUTO) 3.9 x10^3/uL (2.2-4.8); NEUTROPHILS % (AUTO) 45.3 % (42.0-75.0); PLATELET COUNT 326 X10^3/uL (150.0-450.0); RED BLOOD COUNT 3.88 X10^6/uL (3.5-5.4); RED CELL DISTRIBUTION WIDTH 16.8 % (11.6-16.5); WHITE BLOOD COUNT 8.6 X10^3/uL (3.6-10.0)
[2017-12-05 05:33] LABS: ALANINE AMINOTRANSFERASE 27 Units/L (12-78); ALBUMIN 1.6 g/dL (3.4-5.0); ALKALINE PHOSPHATASE 55 Units/L (46-116); ASPARTATE AMINO TRANSFERASE 16 Units/L (15-37); BLOOD UREA NITROGEN 5 mg/dL (7-18); CALCIUM 7.7 mg/dL (8.5-10.1); CARBON DIOXIDE 20.2 mmol/L (21-32); CHLORIDE 114 mmol/L (98-107); COR CA(FOR HYPOALB) 9.6 mg/dL (8.5-10.1); SODIUM 146 mmol/L (136-145); TOTAL PROTEIN 5.7 g/dL (6.4-8.2); eGFR BLACK RACES > 60 (>60); eGFR NON BLACK RACES > 60 (>60)
[2017-12-05] MEDS: ZOSYN VIAL 4.5 GM 4.5 GM in NS 100 ML IV + SPIKE MINIBAG* 100 ML IV SCH ×3 (06:09→21:15)
[2017-12-05] MEDS: K-LYTE EFFERVESCENT PO PRN ×2 (08:44→17:36)
[2017-12-05] MEDS ORDERED: TYLENOL #3 TAB (W/CODEINE) PO PRN (13:16)
--- NOTE | 2017-12-05 13:22 | CT ---
CT abdomen and pelvis without contrast Indication: Abdominal pain, dehydration Comparison: 11/30/2017 Technique: CT images of the abdomen and pelvis were obtained without contrast. Automatic exposure con trol was utilized. Findings: There is marked multilevel lumbar spondylosis with mild associated dextroscoliosis. No acut e skeletal abnormality identified. The lung bases are grossly clear. Evaluation of the abdominal pelvic viscera is limited without contrast. Accounting for this, the live r, gallbladder, spleen, stomach, duodenum, pancreas, adrenals, and kidneys are unremarkable. Again seen is a thickened loop of bowel within the right lower quadrant with marked adjacent fat stra nding. This bowel appears to be the terminal ileum, although evaluation is limited by fat stranding a nd lack of contrast. The appendix is not identified. This loop of inflamed bowel is closely apposed t o the right iliacus muscle, which is again thickened and contains mixed fluid-gas collection, similar to the prior study. This collection appears to extend cranially and partially involves the psoas mus nicolas. The largest fluid component measures approximately 3.4 x 1.0 cm in maximum axial dimension on im age 56, series 3. Mildly enlarged right iliac chain lymph nodes are noted in this region, likely reac tive. There is otherwise no marked thickening or dilatation of the remaining lower GI tract. There is liquid stool within the rectum, in keeping with diarrheal illness. The urinary bladder is unremarkab le. The uterus is absent. Impression: 1. Marked inflammation within the right lower quadrant with bowel thickening and adjacent fat strandi ng, with probable abscess of the iliacus/iliopsoas muscle, similar to the prior study. The bowel infl ammation appears to be centered within the terminal ileum, although evaluation is difficult given the stranding and lack of contrast. Ruptured appendicitis and diverticulitis are also considerations. 2. CT with IV and oral contrast could be helpful. At the very least, CT imaging with oral contrast ad ministration allowing sufficient time for the contrast to reach the proximal colon is recommended. Reported By:
--- NOTE | 2017-12-05 13:25 | DR.H&P ---
H&P - History & Physical for Day of: H&P Date: 12/04/17 - Chief Complaint Chief Complaint: weakness, poor appetite, dehydration, ams - Allergies Allergies/Adverse Reactions: Allergies Allergy/AdvReac Type Severity Reaction Status Date / Time No Known Drug Allergies Allergy Verified 08/23/17 17:29 - History of Present Illness History of Present Illness: PT IS 87 BF ADMIT FROM [facility] WITH CO DIFFUSE WEAKNESS AND POOR PO INTAKE. NURSING STAFF REPORTS PT REFUSED TO EAT OR DRINK. PT HAS HAD INCREASED MALAISE, IRRITABILITY. PT WAS RECENTLY TREATED AT [facility] WITH "INTESTINAL INFECTION". PT HAS PMH OF STABLE DEMENTIA, OA, HTN. PLAN TO OBTAIN ADMISSION LABS, CT ABD PELVIS, CULTURES, HYDRATION, EVALUATION PT'S AMS AND APPETITE LOSS - Past Medical History Past Medical History: Arthritis, Dementia, GERD, Hypertension - Past Surgical History Surgical History: Unknown - Social History Does patient currently use any type of tobacco product: No Have you used tobacco products in the last 12 months: No Does any household member use tobacco: No Alcohol Use: None Drug Use: None - Medications Home Medications: 0.9 % Sodium Chloride [Normal Saline Flush] 10 ml IV Q6H 12/04/17 [History Confirmed 12/04/17] Amlodipine Besylate [NORVASC 5 MG *] 5 mg PO DAILY 12/04/17 [History Confirmed 12/04/17] Apixaban [Eliquis] 5 mg PO HS 12/04/17 [History Confirmed 12/04/17] Divalproex Sodium [Divalproex Sodium] 250 mg PO BID 12/04/17 [History Confirmed 12/04/17] Escitalopram Oxalate [LEXAPRO 10 MG TAB *] 10 mg PO DAILY 12/04/17 [History Confirmed 12/04/17] Misc Home Med [Patient's Home Medication] 30 ml PO BID 12/04/17 [History Confirmed 12/04/17] Nystatin Susp [NYSTATIN ORAL SUSP *] 5 ml PO TID 12/04/17 [History Confirmed ] Piperacillin Sodium-Tazobactam [ZOSYN VIAL 3.375 GM *] 3.375 gm IV QID 12/04/17 [History Confirmed 12/04/17] - Review of Systems Constitutional: Weakness, Malaise Eyes: No Symptoms Reported ENT: No Symptoms Reported Respiratory: No Symptoms Reported Cardiovascular: denies: Chest Pain, Edema Gastrointestinal: Nausea, Constipation, Other (APPETITE LOSS) Genitourinary: Incontinence Musculoskeletal: Back Pain, Leg Pain Skin: No Symptoms Reported Neurological: Weakness, Confusion - Physical Exam Vital Signs: Temperature 98.3 F Pulse Rate [Right Brachial] 73 Respiratory Rate 20 Blood Pressure [Right Arm] 153/70 Blood Pressure [Left Arm] 153/70 Blood Pressure 181/78 O2 Sat by Pulse Oximetry 98 Oriented: Person Eyes: Normal Ear: Normal Nose: Normal Throat: Dry Respiratory: LLL Diminished Cardiovascular: Normal. negative: Edema : Normal Auscultation: Bowel Sounds: Normal Tenderness: Epigastric Skin: Decreased [place] Musculoskeletal: Right, Left, Leg, Motor Deficit, Instability Mood Description: Depressed Speech Pattern: Inappropriate - Assessment/Plan (1) Altered mental status Status: Acute Plan: ADMIT, ADMISSION LABS. BLOOD AND URINE CULTURES. RESUME HOME MEDS, CXR ON ADMISSION. CT ABD PELVIS Q AM, LACTIC ACID LEVEL. I & OS, OBTAIN D/C SUMMARY AND CT REPORT FROM [facility]. BP MONITORING, GENTLE HYDRATION (2) Appetite loss Status: Acute (3) Dehydration Status: Acute (4) Dementia Qualifiers: Dementia type: vascular dementia Dementia behavioral disturbance: without behavioral disturbance Qualified Code(s): F01.50 - Vascular dementia without behavioral disturbance Status: Acute (5) Hypertension Qualifiers: Hypertension type: essential hypertension Qualified Code(s): I10 - Essential (primary) hypertension Status: Acute
[2017-12-05] MEDS ORDERED: ZOSYN VIAL 3.375 GM 3.375 GM in NS 100 ML IV + SPIKE MINIBAG* 100 ML IV SCH (14:00)
[2017-12-05] MEDS: NYSTATIN SUSP PO SCH ×2 (14:03→21:15)
[2017-12-05] MEDS: NORVASC TAB 5 MG PO SCH (14:05)
[2017-12-05] MEDS: NS 1000 ML 1,000 ML IV SCH (14:09)
[2017-12-05] MEDS ORDERED: BUTT CREAM (COMPOUND) ONE (15:23)
[2017-12-05] MEDS ORDERED: BUTT CREAM (COMPOUND) TOP PRN (15:24)
[2017-12-05 16:27] LABS: CRYPTOSPORIDIUM PARVUM ANTIGEN NEGATIVE (NEGATIVE); GIARDIA LAMBLIA ANTIGEN NEGATIVE (NEGATIVE)
[2017-12-05] MEDS ORDERED: ZOSYN VIAL 3.375 GM IV SCH (17:00)
[2017-12-05] MEDS ORDERED: ARICEPT TAB 10 MG PO SCH (21:00)
[2017-12-05] MEDS: NAMENDA TAB 10 MG PO SCH (21:15)
[2017-12-06 05:17] LABS: BASOPHILS # (AUTO) 0.1 X10^3/uL (0.0-0.1); BASOPHILS % (AUTO) 1.3 % (0.2-1.0); EOSINOPHILS # (AUTO) 0.4 x10^3/uL (0.0-0.2); EOSINOPHILS % (AUTO) 4.9 % (0.9-2.9); HEMATOCRIT 29.8 % (36.0-47.0); HEMOGLOBIN 10.2 g/dL (12.0-16.0); LYMPHOCYTES # (AUTO) 3.7 X10^3/uL (1.3-2.9); LYMPHOCYTES % (AUTO) 50.4 % (21.0-51.0); MEAN CORPUSCULAR HEMOGLOBIN 28.1 pg (27.0-34.0); MEAN CORPUSCULAR HGB CONC 34.2 g/dL (33.0-35.0); MEAN CORPUSCULAR VOLUME 82.3 fL (80.0-100.0); MEAN PLATELET VOLUME 8.5 fL (7.4-11.0); MONOCYTES # (AUTO) 0.6 x10^3/uL (0.3-0.8); MONOCYTES % (AUTO) 7.8 % (0.0-13.0); NEUTROPHILS # (AUTO) 2.6 x10^3/uL (2.2-4.8); NEUTROPHILS % (AUTO) 35.6 % (42.0-75.0); PLATELET COUNT 340 X10^3/uL (150.0-450.0); RED BLOOD COUNT 3.62 X10^6/uL (3.5-5.4); RED CELL DISTRIBUTION WIDTH 17.3 % (11.6-16.5); WHITE BLOOD COUNT 7.3 X10^3/uL (3.6-10.0)
[2017-12-06 05:35] LABS: ALANINE AMINOTRANSFERASE 23 Units/L (12-78); ALBUMIN 1.6 g/dL (3.4-5.0); ALKALINE PHOSPHATASE 51 Units/L (46-116); ASPARTATE AMINO TRANSFERASE 15 Units/L (15-37); BLOOD UREA NITROGEN 3 mg/dL (7-18); CALCIUM 7.7 mg/dL (8.5-10.1); CARBON DIOXIDE 19.6 mmol/L (21-32); CHLORIDE 114 mmol/L (98-107); COR CA(FOR HYPOALB) 9.6 mg/dL (8.5-10.1); CREATININE 0.89 mg/dL (0.55-1.02); SODIUM 144 mmol/L (136-145); TOTAL PROTEIN 5.5 g/dL (6.4-8.2); eGFR BLACK RACES > 60 (>60); eGFR NON BLACK RACES > 60 (>60)
[2017-12-06] MEDS: ZOSYN VIAL 4.5 GM 4.5 GM in NS 100 ML IV + SPIKE MINIBAG* 100 ML IV SCH ×2 (06:24→14:47)
[2017-12-06] MEDS: NYSTATIN SUSP PO SCH ×2 (06:24→14:19)
[2017-12-06] MEDS: NS 1000 ML 1,000 ML IV SCH (06:26)
[2017-12-06] MEDS ORDERED: LEXAPRO PO SCH (09:00)
[2017-12-06] MEDS ORDERED: FLAGYL IV PREMIX 500 MG BAG 500 MG/100 ML BAG IV SCH (09:00)
[2017-12-06] MEDS ORDERED: FOLIC ACID TAB 1 MG PO SCH (09:00)
[2017-12-06] MEDS ORDERED: LEXAPRO ONE (09:34)
[2017-12-06] MEDS: NORVASC TAB 5 MG PO SCH (10:56)
[2017-12-06] MEDS: NAMENDA TAB 10 MG PO SCH (10:56)
[2017-12-06] MEDS ORDERED: PROTONIX INJ 40 MG VIAL IVP SCH (11:00)
--- NOTE | 2017-12-06 12:54 | PCM.PROG ---
Progress Note - Progress Note for Day of Date: 12/05/17 - Subjective Subjective: 87 BF DIRECT ADMIT ON 12/04 WITH CO PER NURSING STAFF PT HAS HAD POOR PO INTAKE AND INCREASED AMS. PT RECENTLY INPT AT [facility] IN [place] AND DX WITH POSSIBLE APPENDICITIS VS. DIVERTICULITIS. PT WAS STARTED ON ZOSYN AND D/C WITH PICC LINE INFUSION. PT NPO FOR CT ABD PELVIS THIS AM. PT'S PREVIOUS CT RESULTS FROM [facility] ON CHART. PT CALM THIS AM, TENDERNESS TO MID AND LOWER ABDOMEN. - Past Medical Family Social History Past Med/Fam/Surg Hx: No changes since H&P Allergies: Allergies No Known Drug Allergies Allergy (Verified 08/23/17 17:29) - Review of Systems ROS: No change since H&P - Vital Signs and I&O's Vital Signs: Temperature 97.2 F Pulse Rate [Right Brachial] 72 Respiratory Rate 18 Blood Pressure [Right Arm] 120/58 Blood Pressure [Left Arm] 153/70 Blood Pressure 181/78 O2 Sat by Pulse Oximetry 96 Intake and Output: Intake & Output 12/04/17 12/05/17 12/06/17 12/07/17 11:59 11:59 11:59 11:59 Intake Total 650 410 Balance 650 410 - Physical Exam Oriented: Person Eyes: Normal Ear: Normal Nose: Normal Throat: Dry Cardiovascular: Normal. negative: Edema : Normal Auscultation: Bowel Sounds: Normal Tenderness: Diffuse Skin: Decreased Turgur Musculoskeletal: Right, Left, Leg, Motor Deficit, Instability Mood Description: Depressed Speech Pattern: Clear, Appropriate - Laboratory and Diagnostics Result Diagrams: 12/06/17 04:25 12/06/17 04:25 Labs: 12/04/17 19:00 Blood Blood Culture - Preliminary 12/04/17 19:03 Blood Blood Culture - Preliminary 12/05/17 15:51 Stool Stool Culture - Preliminary 12/05/17 15:51 Stool - Final Laboratory WBC 7.3 X10^3/uL (3.6-10.0) 12/06/17 04:25 RBC 3.62 X10^6/uL (3.5-5.4) 12/06/17 04:25 Hgb 10.2 g/dL (12.0-16.0) L 12/06/17 04:25 Hct 29.8 % (36.0-47.0) L 12/06/17 04:25 MCV 82.3 fL (80.0-100.0) 12/06/17 04:25 MCH 28.1 pg (27.0-34.0) 12/06/17 04:25 MCHC 34.2 g/dL (33.0-35.0) 12/06/17 04:25 RDW 17.3 % (11.6-16.5) H 12/06/17 04:25 Plt Count 340 X10^3/uL (150.0-450.0) 12/06/17 04:25 MPV 8.5 fL (7.4-11.0) 12/06/17 04:25 Neut % (Auto) 35.6 % (42.0-75.0) L 12/06/17 04:25 Lymph % (Auto) 50.4 % (21.0-51.0) 12/06/17 04:25 [place] % (Auto) 7.8 % (0.0-13.0) 12/06/17 04:25 Eos % (Auto) 4.9 % (0.9-2.9) H 12/06/17 04:25 Baso % (Auto) 1.3 % (0.2-1.0) H 12/06/17 04:25 Neut # (Auto) 2.6 x10^3/uL (2.2-4.8) 12/06/17 04:25 Lymph # (Auto) 3.7 X10^3/uL (1.3-2.9) H 12/06/17 04:25 [place] # (Auto) 0.6 x10^3/uL (0.3-0.8) 12/06/17 04:25 Eos # (Auto) 0.4 x10^3/uL (0.0-0.2) H 12/06/17 04:25 Baso # (Auto) 0.1 X10^3/uL (0.0-0.1) 12/06/17 04:25 Absolute Nucleated RBC 0.1 /100WBC 12/06/17 04:25 Sodium 144 mmol/L (136-145) 12/06/17 04:25 Corrected Sodium TNP 12/06/17 04:25 Potassium 3.1 mmol/L (3.5-5.1) L 12/06/17 04:25 Chloride 114 mmol/L (98-107) H 12/06/17 04:25 Carbon Dioxide 19.6 mmol/L (21-32) L 12/06/17 04:25 BUN 3 mg/dL (7-18) L 12/06/17 04:25 Creatinine 0.89 mg/dL (0.55-1.02) 12/06/17 04:25 Est GFR (MDRD) Af Amer > 60 (>60) 12/06/17 04:25 Est GFR (MDRD) Non-Af > 60 (>60) 12/06/17 04:25 Glucose 89 mg/dL (65-99) 12/06/17 04:25 Lactic Acid 1.2 mmol/L (0.4-2.0) 12/05/17 13:33 Calcium 7.7 mg/dL (8.5-10.1) L 12/06/17 04:25 Corrected Calcium 9.6 mg/dL (8.5-10.1) 12/06/17 04:25 Magnesium 2.1 mg/dL (1.7-2.9) 12/04/17 19:03 Total Bilirubin 0.30 mg/dL (0.2-1.0) 12/06/17 04:25 AST 15 Units/L (15-37) 12/06/17 04:25 ALT 23 Units/L (12-78) 12/06/17 04:25 Alkaline Phosphatase 51 Units/L (46-116) 12/06/17 04:25 Total Protein 5.5 g/dL (6.4-8.2) L 12/06/17 04:25 Albumin 1.6 g/dL (3.4-5.0) L 12/06/17 04:25 Globulin 3.9 g/dL (2.5-4.5) 12/06/17 04:25 Albumin/Globulin Ratio 0.4 Ratio (1.1-2.1) L 12/06/17 04:25 Amylase 84 Units/L (25-115) 12/04/17 19:03 Lipase 226 Units/L (73-393) 12/04/17 19:03 Free T4 1.72 ng/dL (0.76-1.46) H 12/04/17 19:03 TSH 3rd Generation 2.478 uIU/mL (0.358-3.74) 12/04/17 19:03 Stool Description 5g,mucoid,unformed 12/05/17 15:51 Stl Occult Blood (IFOB) Negative (NEGATIVE) 12/05/17 15:51 Stl C. diff Tox B Gene Negative (NEGATIVE) 12/05/17 15:51 Stl C. diff [id number] Negative (NEGATIVE) 12/05/17 15:51 Cryptosporid parvum Ag Negative (NEGATIVE) 12/05/17 15:51 E. histolytica Antigen Negative (NEGATIVE) 12/05/17 15:51 Giardia lamblia Ag Negative (NEGATIVE) 12/05/17 15:51 - Plan (1) Altered mental status Status: Acute Plan: R/O SEPSIS. BLOOD AND URINE CULTURES COLLECTED ON ADMISSION. RESUME HOME MEDS, CXR ON ADMISSION. CT ABD PELVIS Q AM, LACTIC ACID LEVEL. I & OS. BP MONITORING, GENTLE HYDRATION (2) Diverticulitis Status: Acute Plan: IV ATBX, PAIN CONTROL. AM LABS (3) Appetite loss Status: Acute (4) Dehydration Status: Acute (5) Dementia Status: Acute Qualifiers: Dementia type: vascular dementia Dementia behavioral disturbance: without behavioral disturbance Qualified Code(s): F01.50 - Vascular dementia without behavioral disturbance (6) Hypertension Status: Acute Qualifiers: Hypertension type: essential hypertension Qualified Code(s): I10 - Essential (primary) hypertension
[2017-12-06 16:05] VITALS: BP 121/56
== END 2017-12-06 17:45 | disposition short-term general hospital (02) | DRG 948 ==
LOC: MED/SURG 16:03
PROVIDERS: ADMIT Internal Medicine; ATTEND Internal Medicine
DX: R41.82 Altered mental status, unspecified (principal); E87.0 Hyperosmolality and hypernatremia; E86.0 Dehydration; R53.1 Weakness; K21.9 Gastro-esophageal reflux disease without esophagitis; I10 Essential (primary) hypertension; K52.89 Other specified noninfective gastroenteritis and colitis; F01.50 Vascular dementia, unspecified severity, without behavioral disturbance, psychotic disturbance, mood disturbance, and anxiety; R63.0 Anorexia; R26.89 Other abnormalities of gait and mobility; R47.81 Slurred speech; R97.0 Elevated carcinoembryonic antigen [CEA]; Z79.899 Other long term (current) drug therapy
CPT/HCPCS: 36415; 71045; 74176; 80053; 82150; 82274; 82378; 83605; 83690; 83735; 84132; 84439; 84443; 85025; 87040; 87045; 87328; 87329; 87336; 87427; 87449; 87493; A4222; C9113; S0030; G0378; J2543